=== PATIENT | female | born 1930 | race Caucasian/White ===

== ENCOUNTER 2017-06-19 19:38 | Emergency (ER) | payer MEDICARE, BC ==
[2016-02-15 09:42] VITALS: BMI 25.4
[~2017-06-19 19:38] MED LIST: BAYER CHEWABLE81 MG PO; BENICAR20 MG PO; CALTRATE 600 M600 M1 PO; CENTRUM COMPLE1 EACH PO; GLUCOPHAGE XR750 MG PO; HYDROCHLOROTH12.5 M1 PO; PLAVIX75 MG PO; SYNTHROID50 MCG PO; TOPROL XL25 MG; TOPROL XL25 MG PO
[2017-06-19 20:46] LABS: BASOPHILS 0.2 % (0-2); HEMATOCRIT 34.2 % (36.0-48.0); HEMOGLOBIN 11.4 g/dL (12-16); IMMATURE GRANULOCYTES 0.7 % (0-5); LYMPHOCYTES 17.2 % (15-50); MCH 30.3 pg (26.0-34.0); MCHC 33.3 g/dL (31.0-37.0); MEAN PLATELET VOLUME 9.8 fL (7.4-10.4); MONOCYTES 10.3 % (2-11); NEUTROPHILS 70.6 % (40-80); PLATELET COUNT 245 10x3/uL (130-400); RBC 3.76 10x6/uL (4.00-5.40); RDW 13.5 % (11.5-14.5); WBC 8.7 10x3/uL (4.8-10.8)
[2017-06-19 21:24] LABS: ALBUMIN 3.1 g/dL (3.4-5.0); ANION GAP 11.6 mmol/L (8-16); BILIRUBIN - TOTAL 0.32 mg/dL (0.2-1.3); CALCIUM 8.6 mg/dL (8.5-10.1); CARBON DIOXIDE 25.1 mmol/L (21.0-32.0); CREATININE - SERUM 2.1 mg/dL (0.6-1.3); POTASSIUM - SERUM 4.7 mmol/L (3.5-5.1); PROTEIN - SERUM 6.3 g/dL (6.4-8.2)
== END 2017-06-19 22:16 | disposition home or self-care (01) ==
LOC: D.ER 19:38
PROVIDERS: Family Medicine; Nurse Practitioner Family
DX: L03.114 Cellulitis of left upper limb (principal); I10 Essential (primary) hypertension; E11.9 Type 2 diabetes mellitus without complications